=== PATIENT | male | born 1980 | race Caucasian/White ===

== ENCOUNTER → 2017-07-11 | Outpatient (CLI) | payer OTHER ==
--- NOTE | 2017-07-11 14:40 | KCIC ---
MRI study of the right elbow without contrast Clinical indications: Right elbow pain for 2 months. History of tennis elbow. Use of right arm daily. TECHNIQUE: Noncontrast MRI sequences of the right elbow were performed in all 3 planes. COMPARISON: Radiographic study of the right elbow dated May 26, 2017. FINDINGS: No joint effusion is seen. No loose osteochondral body is evident. There is a small degenerative cyst of the posterior aspect of the capitellum. There is mild degenerative spurring of the radial capitellar joint compartment. The ulnar trochlear joint compartment is unremarkable. No bone contusion or fracture or marrow infiltrative process is seen. The triceps and brachialis and biceps tendons are intact. There is edema of the common extensor tendon mechanism at the insertion onto the lateral epicondyle. This is consistent with tendinosis. There is a partial external tear at the insertion. No complete tear of the common extensor tendon mechanism is seen. The common flexor tendon mechanism is intact. The radial collateral ligament and ulnar collateral ligament and lateral ulnar collateral ligament and annular ligament are intact. No muscle edema is seen. No soft tissue mass is evident. No olecranon bursitis is seen. IMPRESSION: Tendinosis and partial external tear of the common extensor tendon mechanism at the attachment to the lateral epicondyle. 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 Electronically signed by: Luis Isabel MD (07/11/2017 2:37 PM) [facility]
== END | disposition home or self-care (01) ==
LOC: KCIC MRI 11:03
PROVIDERS: ATTEND Physician Assistant Surgical
DX: S96.911A Strain of unspecified muscle and tendon at ankle and foot level, right foot, initial encounter (principal); M77.11 Lateral epicondylitis, right elbow; M19.071 Primary osteoarthritis, right ankle and foot; X58.XXXA Exposure to other specified factors, initial encounter; Y93.89 Activity, other specified; Y92.89 Other specified places as the place of occurrence of the external cause; Y99.8 Other external cause status
CPT/HCPCS: 73221

== ENCOUNTER → 2017-07-18 | Outpatient (CLI) | payer OTHER ==
--- NOTE | 2017-07-18 10:17 | CARD ---
APPROVED REPORT EXAM: Two-dimensional and M-mode echocardiogram with Doppler and color Doppler. Other Information Quality : GoodHR: 47bpm Rhythm : Bradycardia INDICATION Chest Pain Murmur 2D DIMENSIONS RVDd2.9 (2.9-3.5cm)Left Atrium(2D)3.9 (1.6-4.0cm) IVSd1.0 (0.7-1.1cm)Aortic Root(2D)3.0 (2.0-3.7cm) LVDd5.6 (3.9-5.9cm)LVOT Diameter2.4 (1.8-2.4cm) PWd1.0 (0.7-1.1cm)LVDs3.7 (2.5-4.0cm) FS (%) 35.0 %SV99.4 ml LVEF(%)63.6 (>50%) Aortic Valve AoV Peak Rosalio.150.3cm/sAoV VTI35.3cm AO Peak GR.9.0mmHgLVOT Peak Rosalio.98.9cm/s AO Mean GR.5mmHgAVA (VMAX)3.00cm2 Mitral Valve MV E Sxiqfxrb89.3cm/sMV DECEL JLXO524da MV A Grfnhyjm95.5cm/sE/A Ratio1.3 MV A Rzgntdsq743hg Pulmonary Valve PV Peak Sexfhccc224.6cm/s Tricuspid Valve TR P. Bgfkhgjk725hz/sTR Peak Gr.26mmHg Pulmonary Vein S1 Nppiubpx81.4cm/sD2 Giophkmw92.4cm/s PVa beeifjjl69nmac LEFT VENTRICLE The left ventricle is normal size. There is normal left ventricular wall thickness. The left ventricu lar systolic function is normal. The Ejection Fraction is 60-65%. There is normal LV segmental wall m otion. The left ventricular diastolic function and filling is normal for age. RIGHT VENTRICLE The right ventricle is normal size. There is normal right ventricular wall thickness. The right ventr icular systolic function is normal. ATRIA The left atrium is mildly dilated. The right atrium size is normal. The interatrial septum is intact with no evidence for an atrial septal defect or patent foramen ovale as noted on 2-D or Doppler imagi ng. AORTIC VALVE The aortic valve is normal in structure and function. The aortic valve is trileaflet. Doppler and Col or Flow revealed no significant aortic regurgitation. There is no significant aortic valvular stenosi s. MITRAL VALVE There is no evidence of mitral valve prolapse. There is no mitral valve stenosis. Doppler and Color F low revealed trace mitral regurgitation. TRICUSPID VALVE Doppler and Color Flow revealed mild tricuspid regurgitation. The pulmonary artery systolic pressure is estimated at 29 mmHg. There is no pulmonary hypertension. PULMONIC VALVE The pulmonic valve is not well visualized but appears to open adequately. Doppler and Color Flow reve aled mild pulmonic valvular regurgitation. There is no pulmonic valvular stenosis by spectral Doppler . GREAT VESSELS The aortic root is normal in size. PERICARDIAL EFFUSION There is no evidence of significant pericardial effusion. Critical Notification Critical Value: No <Conclusion> The left ventricular systolic function is normal. The Ejection Fraction is 60-65%. There is normal LV segmental wall motion. Trace mitral regurgitation. Mild tricuspid regurgitation. The pulmonary artery systolic pressure is estimated at 29 mmHg. There is no evidence of significant pericardial effusion.
--- NOTE | 2017-07-18 14:01 | RAD ---
APPROVED REPORT Test Type: Exercise Stress Nurse/Tech: Alexandrea Caraballo R.N. Test Indications: left sided chest discomfort Cardiac History: Diabetes, Hypertension Medications: See Electronic Medical Record Medical History: See Electronic Medical Record Resting ECG: s. herson Resting Heart Rate: 46 bpm Resting Blood Pressure: 111/68mmHg Pretest Chest Pain: No chest pain Nurse/Tech Notes S1S2, lungs sound clear Consent: The procedure was explained to the patient in lay terms. Informed consent was witnessed. Harman eout was entered into [employer]. History and Stress Test performed by Alexandrea Caraballo R.N. Stress Symptoms No chest pain or symptoms. POST EXERCISE Reason for Termination: Reached target heart rate Target HR: 153 Max HR: 155 bpm Exercise duration: 14 min 16 sec. min:sec, 5 Stage Max Blood Pressure: 153/68mmHg Blood Pressure response to exercise: Normal blood pressure response during stress. Heart Rate response to exercise: wni Chest Pain: No. Arrhythmia: No. ST Change: Yes. st elevation during recovery, but denies any pain INTERPRETATION Stress EKG Conclusion: Baseline EKG showed sinus rhythm. No ischemic changes at peak stress. No arr hythmias. Imaging Protocol IMAGE PROTOCOL: Rest Tc-99m/stress Tc-99m 1 day Rest: Stress: Viability: Radiopharm.Tc99m GpfqjpjgsWb67b Sestamibi Dose11.2mCi 33mCi Duration 15min. 10min. Img Date 07/18/2017 07/18/2017 Inj-Img Otmu69jqb. 60min. Post-Injection Exercise: 1 minute Rest Admin Site:IV - Left AntecubitalAdministrator:DYLAN Aguilar Stress Admin Site: IV - Left AntecubitalAdministrator: Octavia Ervin, RT (R)(N) STRESS DATA End Diast. Vol.160.0mlAv. Heart Rate57.0bpm End Syst. Vol.49.0mlCO Index BSA0.0L/min Myocardial Mrfg617.0gEject. Gougdkgt26.0% Stress Rates Pk. Fill Rate2.58EDV/secLVtime Pk. Fill 222.62msec Pk. Empty Rate3.23ESV/secLVtime Pk. Ihwqg821.01msec 11/30 Pk. Fill1.09EDV/sec Stress Scores Regional WT1.00Summed WT3.00 Regional WM0.00Summed WM0.00 Study quality was good. Left Ventricular size was Normal at Rest and Stress. Lung uptake was Normal. Left Ventricular ejection fraction is 69%. The rest and stress images show normal perfusion, normal contraction and thickening. LV Perf. Quant 17 Seg. SSS0.00 17 Seg. SRS0.00 17 Seg. SDS0.00 Stress Defect Extent (% LAD)3.80Rest Defect Extent (% LAD)0.00Rev. Defect Extent (% LAD)3.10 Stress Defect Extent (% LCX) 0.00Rest Defect Extent (% LCX)0.00Rev. Defect Extent (% LCX)0.00 Stress Defect Extent (% RCA)0.00Rest Defect Extent (% RCA)0.00Rev. Defect Extent (% RCA)0.00 Stress Defect Extent (% IVETT)1.30Rest Defect Extent (% IVETT)0.00Rev. Defect Extent (% IVETT)1.10 Conclusion 1. Treadmill exercise cardioisotope stress test did not show any evidence of ischemia or infarct. 2. Normal left ventricular systolic function with ejection fraction calculated at 69%. 3. Patient had excellent activity tolerance. Low risk for cardiac events.
== END | disposition home or self-care (01) ==
LOC: ECHO 07:48
PROVIDERS: ATTEND Internal Medicine Cardiovascular Disease
DX: I08.1 Rheumatic disorders of both mitral and tricuspid valves (principal); I49.5 Sick sinus syndrome
CPT/HCPCS: 78452; 93017; 93306; 96374; 96376; A9500

== ENCOUNTER 2017-09-24 07:56 | Emergency (ER) | payer OTHER ==
[~2017-09-24] VITALS: Ht 177.8 cm; Wt 84.4 kg
--- NOTE | 2017-09-24 08:32 | PHYS DOC ---
Adult General Chief Complaint Chief Complaint: RIB PAIN HPI HPI Patient is a 37 year old male presents to the ED complaining of right chest pain x 2 days. States he woke up two days ago with the chest pain. Describes as sharp. Rates as 8/10. Worse with movement. 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 States he has been getting worked up outpatient with cardiology; normal stress test and normal echo. States the pain is worse with inspiration. Denies cough, flu-like symptoms , headache, fever, vision changes, n/v, abdominal pain, weakness, syncope. Review of Systems Review of Systems Constitutional: Denies fever or chills [] Eyes: Denies change in visual acuity, redness, or eye pain [] HENT: Denies nasal congestion or sore throat [] Respiratory: Denies cough or shortness of breath [] Cardiovascular: No additional information not addressed in HPI [] GI: Denies abdominal pain, nausea, vomiting, bloody stools or diarrhea [] : Denies dysuria or hematuria [] Musculoskeletal: Denies back pain or joint pain [] Integument: Denies rash or skin lesions [] Neurologic: Denies headache, focal weakness or sensory changes [] Endocrine: Denies polyuria or polydipsia [] Current Medications Current Medications Current Medications Medications (Trade) Dose Ordered Sig/Fadi Start Time Stop Time Status Last Admin Dose Admin Aspirin (Naldo Aspirin) 325 mg 1X ONCE 09/24/17 08:45 09/24/17 08:46 DC 09/24/17 08:38 325 MG Ketorolac Tromethamine (Toradol) 30 mg 1X ONCE 09/24/17 08:45 09/24/17 08:46 DC 09/24/17 08:38 30 MG Sodium Chloride 1,000 ml @ 1,000 mls/hr 1X ONCE 09/24/17 09:15 09/24/17 10:14 DC Allergies Allergies Allergies Coded Allergies Type Severity Reaction Last Updated Verified No Known Drug Allergies 09/24/17 No Physical Exam Physical Exam Constitutional: Well developed, well nourished, no acute distress, non-toxic appearance. [] HENT: Normocephalic, atraumatic, bilateral external ears normal, oropharynx moist, no oral exudates, nose normal. [] Eyes: PERRLA, EOMI, conjunctiva normal, no discharge. [] Neck: Normal range of motion, no tenderness, supple, no stridor. [] Cardiovascular:Heart rate regular rhythm, no murmur [] Lungs & Thorax: Bilateral breath sounds clear to auscultation. [] Abdomen: Bowel sounds normal, soft, no tenderness, no masses, no pulsatile masses. [] Skin: Warm, dry, no erythema, no rash. [] Back: No tenderness, no CVA tenderness. [] Extremities: No tenderness, no cyanosis, no clubbing, ROM intact, no edema. [] Neurologic: Alert and oriented X 3, normal motor function, normal sensory function, no focal deficits noted. [] Psychologic: Affect normal, judgement normal, mood normal. [] Current Patient Data Vital Signs Vital Signs Date Time Temp Pulse Resp B/P (MAP) Pulse Ox O2 Delivery O2 Flow Rate FiO2 09/24/17 10:00 48 120/76 (91) 100 Room Air 09/24/17 08:00 97.8 18 97.8 Lab Values Laboratory Tests Test 09/24/17 08:30 09/24/17 09:18 White Blood Count 3.9 x10^3/uL (4.0-11.0) L Red Blood Count 5.23 x10^6/uL (4.30-5.70) Hemoglobin 16.0 g/dL (13.0-17.5) Hematocrit 46.9 % (39.0-53.0) Mean Corpuscular Volume 90 fL (79-100) Mean Corpuscular Hemoglobin 31 pg (25-35) Mean Corpuscular Hemoglobin Concent 34 g/dL (31-37) Red Cell Distribution Width 12.9 % (11.5-14.5) Platelet Count 251 x10^3/uL (140-400) Neutrophils (%) (Auto) 52 % (31-73) Lymphocytes (%) (Auto) 34 % (24-48) Monocytes (%) (Auto) 11 % (0-9) H Eosinophils (%) (Auto) 2 % (0-3) Basophils (%) (Auto) 1 % (0-3) Neutrophils # (Auto) 2.0 x10^3uL (1.8-7.7) Lymphocytes # (Auto) 1.3 x10^3/uL (1.0-4.8) Monocytes # (Auto) 0.4 x10^3/uL (0.0-1.1) Eosinophils # (Auto) 0.1 x10^3/uL (0.0-0.7) Basophils # (Auto) 0.0 x10^3/uL (0.0-0.2) Prothrombin Time 13.3 SEC (11.7-14.0) Prothrombin Time INR 1.1 (0.8-1.1) D-Dimer (Ronit) 0.27 ug/mlFEU (0.00-0.50) Urine Color Yellow Urine Clarity Clear Urine pH 6.0 Urine Specific [place] 1.025 Urine Protein Negative mg/dL (NEG-TRACE) Urine Glucose (UA) Negative mg/dL (NEG) Urine Ketones (Stick) Negative mg/dL (NEG) Urine Blood Negative (NEG) Urine Nitrite Negative (NEG) Urine Bilirubin Negative (NEG) Urine Urobilinogen Dipstick 1.0 mg/dL (0.2 mg/dL) Urine Leukocyte Esterase Negative (NEG) Urine RBC Occ /HPF (0-2) Urine WBC 0 /HPF (0-4) Urine Squamous Epithelial Cells Occ /LPF Urine Bacteria 0 /HPF (0-FEW) Urine Mucus Mod /LPF Sodium Level 140 mmol/L (136-145) Potassium Level 4.9 mmol/L (3.5-5.1) Chloride Level 103 mmol/L (98-107) Carbon Dioxide Level 31 mmol/L (21-32) Anion Gap 6 (6-14) Blood Urea Nitrogen 14 mg/dL (8-26) Creatinine 1.2 mg/dL (0.7-1.3) Estimated GFR (Cockcroft-Gault) 67.4 BUN/Creatinine Ratio 12 (6-20) Glucose Level 95 mg/dL (70-99) Calcium Level 9.4 mg/dL (8.5-10.1) Total Bilirubin 0.6 mg/dL (0.2-1.0) Aspartate Amino Transferase (AST) 41 U/L (15-37) H Alanine Aminotransferase (ALT) 47 U/L (16-63) Alkaline Phosphatase 120 U/L (46-116) H Creatine Kinase 348 U/L (39-308) H Creatine Kinase MB (Mass) 2.1 ng/mL (0.0-3.6) Creatine Kinase MB Relative Index 0.6 % (0-4) Troponin I Quantitative < 0.017 ng/mL (0.000-0.055) Total Protein 7.9 g/dL (6.4-8.2) Albumin 4.1 g/dL (3.4-5.0) Albumin/Globulin Ratio 1.1 (1.0-1.7) Lipase 302 U/L (73-393) Influenza Type A Antigen Negative (NEGATIVE) Influenza Type B Antigen Negative (NEGATIVE) Laboratory Tests 09/24/17 08:30 Laboratory Tests 09/24/17 08:30 EKG EKG []NSR at 55 bpm. Leftward axis. No STEMI. Radiology/Procedures Radiology/Procedures PROCEDURE: CHEST PA & LATERAL CHEST PA LATERAL Clinical Indication: chest pain Comparison: Chest radiograph dated 09/23/2017 Findings: Normal lung volume. No focal consolidation. Normal pulmonary vasculature. No pleural effusion or pneumothorax. The cardiomediastinal silhouette and great vessels are stable. No acute osseous abnormality. IMPRESSION: No acute cardiopulmonary process.[] Course & Med Decision Making Course & Med Decision Making Pertinent Labs and Imaging studies reviewed. (See chart for details) []Discussed labs and imaging with patient. Patient's pain is reproducible with movement and deep inspiration. Patient's pain improved with Toradol given in ED. Patient resting comfortably in room. Will prescribe Motrin 800 mg outpatient. Normal echo and stress test within the last 2 weeks per patient. Discussed admission. Patient refused. States he is feeling better. Discussed viral illnesses, costochondritis, and pleurisy. Discussed follow-up with PCP/ cardiology outpatient and reasons to return to the ED. Patient understands and agrees with plan. Family at bedside. Dragon Disclaimer Dragon Disclaimer This electronic medical record was generated, in whole or in part, using a voice recognition dictation system. Departure Departure Impression: Primary Impression: Costochondral chest pain Disposition: 01 HOME, SELF-CARE Condition: IMPROVED Referrals: ARTHUR GONZALEZ (PCP) Patient Instructions: Costochondritis, Pleurisy Scripts Ibuprofen (IBUPROFEN) 800 Mg Tablet 800 MG PO PRN Q6HRS Y for INFLAMMATION, #20 TAB Prov: GONZÁLEZ HOGAN 09/24/17 GONZÁLEZ HOGAN Sep 24, 2017 08:32
[2017-09-24 08:36] LABS: BASO % 1 % (0-3); EOS % 2 % (0-3); HEMATOCRIT 46.9 % (39.0-53.0); LYMPH # 1.3 x10^3/uL (1.0-4.8); LYMPH % 34 % (24-48); MEAN CORPUSCULAR HEMOGLOBIN 31 pg (25-35); MEAN CORPUSCULAR HGB CONC 34 g/dL (31-37); MEAN CORPUSCULAR VOLUME 90 fL (79-100); MONO % 11 % (0-9); NEUT % 52 % (31-73); PLATELET COUNT 251 x10^3/uL (140-400); RED BLOOD COUNT 5.23 x10^6/uL (4.30-5.70); RED CELL DISTRIBUTION WIDTH 12.9 % (11.5-14.5); WHITE BLOOD COUNT 3.9 x10^3/uL (4.0-11.0)
--- NOTE | 2017-09-24 08:40 | RAD ---
CHEST PA LATERAL Clinical Indication: chest pain Comparison: Chest radiograph dated 09/23/2017 Findings: Normal lung volume. No focal consolidation. Normal pulmonary vasculature. No pleural effusion or pneumothorax. The cardiomediastinal silhouette and great vessels are stable. No acute osseous abnormality. IMPRESSION: No acute cardiopulmonary process.
[2017-09-24] MEDS ORDERED: KETOROLAC 30 MG/ML INJ. IV ONE (08:45)
[2017-09-24] MEDS ORDERED: ASPIRIN 325 MG TABLET PO ONE (08:45)
[2017-09-24 08:49] LABS: BILIRUBIN,URINE NEGATIVE (NEG); GLUCOSE,URINE NEGATIVE (NEG); NITRITE,URINE NEGATIVE (NEG); PROTEIN,URINE NEGATIVE (NEG-TRACE)
[2017-09-24 08:50] LABS: INR 1.1 (0.8-1.1); PROTHROMBIN TIME PATIENT 13.3 SEC (11.7-14.0)
[2017-09-24 08:53] LABS: ALBUMIN 4.1 g/dL (3.4-5.0); ALBUMIN/GLOBULIN RATIO 1.1 (1.0-1.7); CALCIUM 9.4 mg/dL (8.5-10.1); CREATININE 1.2 mg/dL (0.7-1.3); GFR 67.4; POTASSIUM 4.9 mmol/L (3.5-5.1); TOTAL BILIRUBIN 0.6 mg/dL (0.2-1.0); TOTAL PROTEIN 7.9 g/dL (6.4-8.2)
[2017-09-24 08:59] LABS: BACTERIA,URINE 0 /HPF (0-FEW); SQUAMOUS EPITHELIAL CELL,UR OCC /LPF; WBC,URINE 0 /HPF (0-4)
[2017-09-24 09:00] LABS: CKMB MASS 2.1 ng/mL (0.0-3.6); RBC,URINE OCC /HPF (0-2)
[2017-09-24] MEDS ORDERED: IV NORMAL SALINE 1000ML BAG 1,000 ML IV ONE (09:15)
[2017-09-24 09:44] LABS: OBC FLU VALID
[2017-09-24] MEDS ORDERED: IBUP-1060 PO (09:49)
[2017-09-24 10:00] VITALS: BP 120/76
--- NOTE | 2017-09-24 11:13 | EKG ---
[facility] [address] [place] [address] Test Date: 2017-09-24 Test Time: 08:15:58 Pat Name: SYD SIMS Department: Room: Gender: M General Utility Machine Operator: : [id number] Requested By: GONZÁLEZ HOGAN Order Number: [id number] Reading MD: Ann Gabriel Measurements Intervals [place] Rate: 55 P: -11 MO: 150 QRS: -4 QRSD: 94 T: -7 QT: 418 QTc: 402 Interpretive Statements SINUS RHYTHM LEFTWARD AXIS T ABNORMALITY IN INFERIOR LEADS ABNORMAL ECG Electronically Signed On 09-25-2017 16:49:22 CDT by Ann Gabriel
== END 2017-09-24 10:10 | disposition home or self-care (01) ==
LOC: ER 07:56
DX: R07.89 Other chest pain (principal)
CPT/HCPCS: 36415; 71020; 80053; 81001; 82553; 83690; 84484; 85025; 85379; 85610; 87804; 93005; 96374; 99285; J1885

== ENCOUNTER → 2019-02-14 | Outpatient (CLI) | payer OTHER ==
[~2019-02-14] MED LIST: IBUP-1060 PO
--- NOTE | 2019-02-14 17:43 | KCIC ---
MRI of the lumbar spine without contrast 02/14/2019 CLINICAL HISTORY: Chronic low back pain which radiates down the right leg. TECHNIQUE: Unenhanced T1-weighted and T2-weighted sagittal and axial and inversion recovery sagittal images of the lumbar spine were obtained. FINDINGS: Comparison is made to radiographs of the lumbar spine dated 01/30/2019. Minimal S-shaped curvature of the thoracolumbar spine is seen. Degenerative signal changes and loss of height are seen involving the L5-S1 disc. The marrow signal of the visualized bony structures is within normal limits. The conus medullaris is normal morphology, position, and signal characteristics. On the axial images throughout the mid and lower lumbar spine, the changes of degenerative disc disease are seen consisting of minimal to mild generalized disc bulges, degenerative changes involving the facet joints and mild ligamentum flavum hypertrophy. These findings do not result in significant central spinal canal or neural foraminal stenosis at any level. IMPRESSION: The changes of degenerative disc disease are seen involving the mid and lower lumbar spine as outlined above. These findings do not result in significant central spinal canal or neural foraminal stenosis. Electronically signed by: Tera Jacobsen MD (02/14/2019 5:40 PM) [facility]
== END | disposition home or self-care (01) ==
LOC: KCIC MRI 14:30
PROVIDERS: ATTEND Physician Assistant Surgical
DX: M51.36 Other intervertebral disc degeneration, lumbar region (principal); M54.30 Sciatica, unspecified side
CPT/HCPCS: 72148

== ENCOUNTER → 2019-09-07 | Outpatient (CLI) | payer OTHER ==
--- NOTE | 2019-09-07 14:26 | KCIC ---
EXAMINATION: Magnetic resonance imaging (MRI) of the cervical spine without contrast 09/07/2019 12:30 PM HISTORY: Left-sided weakness and hyperreflexia TECHNIQUE: Multiplanar multi-weighted MRI of the cervical spine was performed without intravenous contrast using the standard cervical spine protocol. Contrast information: None administered COMPARISON: None available. FINDINGS: The alignment of the cervical spine is normal. Vertebral bodies demonstrate normal signal intensity on all sequences. Minimal STIR signal hyperintensity involving the C5 vertebral body may be artifactual. No acute fracture is identified; however, if trauma is suspected, a CT scan would be a more sensitive examination for fractures. The craniocervical junction is normal. The visualized portions of the skull base and the posterior fossa are normal. The spinal cord demonstrates normal signal intensity on all sequences. Mild disc desiccation is noted at C3-C4, C4-C5 and C5-C6. No soft tissue abnormality is identified. Normal signal voids are present in the vertebral arteries. C2-C3: The disk is normal in configuration. There is mild right facet arthropathy. There is no uncovertebral joint disease. There is mild right neuroforaminal stenosis. There is no spinal canal stenosis. C3-C4: The disk is normal in configuration. There is no facet arthropathy. There is no uncovertebral joint disease. There is no neuroforaminal stenosis. There is no spinal canal stenosis. C4-C5: The disk is normal in configuration. There is no facet arthropathy. There is no uncovertebral joint disease. There is no neuroforaminal stenosis. There is no spinal canal stenosis. C5-C6: Minimal disc bulge. There is no facet arthropathy. There is no uncovertebral joint disease. There is no neuroforaminal stenosis. There is no spinal canal stenosis. C6-C7: The disk is normal in configuration. There is no facet arthropathy. There is no uncovertebral joint disease. There is no neuroforaminal stenosis. There is no spinal canal stenosis. C7-T1: The disk is normal in configuration. There is no facet arthropathy. There is no uncovertebral joint disease. There is no neuroforaminal stenosis. There is no spinal canal stenosis. IMPRESSION: No significant disc herniation, neuroforaminal or spinal canal stenosis. Minimal STIR signal alteration involving the C5 vertebral body may be artifactual and secondary to motion artifact. Electronically signed by: Bailey Hardwick MD (09/07/2019 2:23 PM) [facility]
== END | disposition home or self-care (01) ==
LOC: KCIC MRI 12:31
PROVIDERS: ATTEND Orthopaedic Surgery
DX: M50.222 Other cervical disc displacement at C5-C6 level (principal); M12.88 Other specific arthropathies, not elsewhere classified, other specified site
CPT/HCPCS: 72141

== ENCOUNTER → 2019-10-22 | Outpatient (CLI) | payer OTHER ==
[~2019-10-22] MED LIST changes: +GADOTERATE 5 MMOL/10ML VIAL. INT ART ONE; +IOHEXOL 300 MG/ML 50 ML VIAL. INT ART ONE; +LIDOCAINE 1% Multi-Dose 20 ML VIAL. ID ONE
--- NOTE | 2019-10-22 14:21 | KCIC ---
MRI arthrogram of the right shoulder HISTORY: Chronic right shoulder pain after injury 3 4 weeks ago. TECHNIQUE: Routine multiplanar sequences are obtained. FINDINGS: Mild widening of the acromioclavicular joint. No evidence of clavicle elevation. No evidence of acute coracoclavicular ligament rupture. Small full-thickness rotator cuff tear of the anterior supraspinatus tendon measures less than 1 cm in diameter. Adjacent rotator cuff tendinosis. No evidence of infraspinatus tendon tear. Partial tear of the upper subscapularis tendon insertion. Contrast enters the subdeltoid bursa and the acromioclavicular joint. No advanced muscle atrophy. Linear defect of the superior labrum compatible with a tear. No acute articular cartilage defect or advanced DJD. The biceps tendon is intact. No acute fracture. No aggressive bone destruction. IMPRESSION: 1. Small full-thickness tear of the anterior supraspinatus tendon. Partial subscapularis tendon tear. 2. Superior labral tear. Electronically signed by: Chris Sandoval MD (10/22/2019 2:18 PM) [facility]
--- NOTE | 2019-10-22 14:34 | KCIC ---
PROCEDURE: Right shoulder injection using fluoroscopic guidance, prior to MR. HISTORY: Shoulder pain. TECHNIQUE: The procedure was explained to the patient as were potential risks, including among others infection, bleeding or allergic reaction. All questions were answered. Informed written and verbal consent was obtained. The shoulder was prepped and draped in the usual sterile manner. Following administration of local anesthetic, a 22-gauge needle was advanced into the anterior shoulder. Following negative aspiration, 12 cc of a solution of 5cc Omnipaque-300 contrast, 5 cc 1% lidocaine, 10 cc normal saline, and 0.1 cc gadolinium was injected without difficulty. The needle was removed. There was good hemostasis at the injection site. The patient left in stable condition without immediate complication. A single spot image is obtained. FLUOROSCOPY TIME:?20 seconds Electronically signed by: Chris Sandoval MD (10/22/2019 2:31 PM) [facility]
== END | disposition home or self-care (01) ==
LOC: KCIC 10:21
PROVIDERS: ATTEND Orthopaedic Surgery
DX: S43.431A Superior glenoid labrum lesion of right shoulder, initial encounter (principal); M75.101 Unspecified rotator cuff tear or rupture of right shoulder, not specified as traumatic; I10 Essential (primary) hypertension; G89.29 Other chronic pain; X58.XXXA Exposure to other specified factors, initial encounter; Y93.89 Activity, other specified; Y92.89 Other specified places as the place of occurrence of the external cause; Y99.8 Other external cause status
CPT/HCPCS: 73040; 73222; A9575; Q9967

== ENCOUNTER → 2020-01-28 | Outpatient (CLI) | payer OTHER ==
--- NOTE | 2020-01-28 16:38 | KCIC ---
PROCEDURE: Right shoulder injection using fluoroscopic guidance, prior to MR. HISTORY: Shoulder pain. TECHNIQUE: The procedure was explained to the patient as were potential risks, including among others infection, bleeding or allergic reaction. All questions were answered. Informed written and verbal consent was obtained. The shoulder was prepped and draped in the usual sterile manner. Following administration of local anesthetic, a 22-gauge needle was advanced into the anterior shoulder. Following negative aspiration, 12 cc of a solution of 5cc Omnipaque-300 contrast, 5 cc 1% lidocaine, 10 cc normal saline, and 0.1 cc gadolinium was injected without difficulty. The needle was removed. There was good hemostasis at the injection site. The patient left in stable condition without immediate complication. A single spot image is obtained. There is a contrast filled defect across the supraspinatus tendon footprint, suspicious for a full-thickness tear with at least 15 mm retraction. FLUOROSCOPY TIME:?39 seconds Electronically signed by: Chris Sandoval MD (01/28/2020 4:35 PM) [id number]
--- NOTE | 2020-01-28 16:39 | KCIC ---
MRI arthrogram of the right shoulder HISTORY: Right shoulder pain. Prior surgical rotator cuff and biceps tendon repair. TECHNIQUE: Routine 3 plane sequences are obtained after intra-articular contrast injection. No Aber images per request. COMPARISON: 10/22/2019. FINDINGS: Metal artifact in the region of the AC joint and rotator cuff degrades these areas. The acromioclavicular joint appears grossly intact. The rotator cuff is essentially completely obscured by the artifact and integrity cannot be determined. However, supraspinatus tendon defect was suggested on the arthrogram procedure. No definite labral detachment is seen. Superior labrum is suboptimally seen. Biceps tendon is not well seen. No evidence of acute fracture or aggressive bone destruction. No abnormal soft tissue fluid collection is seen. IMPRESSION: Severe metal artifact produced by the anchor screw limits the exam, and prevents evaluation of rotator cuff integrity. No definite acute findings are identified. Note that there appear to be a full-thickness defect or tear of the supraspinatus tendon footprint during the arthrogram procedure. CT arthrography could further evaluate, if further workup is warranted. Electronically signed by: Chris Sandoval MD (01/28/2020 4:36 PM) [id number]
== END | disposition home or self-care (01) ==
LOC: KCIC 14:03
PROVIDERS: ATTEND Orthopaedic Surgery
DX: M25.511 Pain in right shoulder (principal); I10 Essential (primary) hypertension
CPT/HCPCS: 23350; 73222; 77002; A9575; J3490; Q9967; 73040